=== PATIENT | female | born 1985 | race Caucasian/White ===

== ENCOUNTER 2017-02-18 13:53 | Emergency (ER) | payer MEDICAID, OTHER ==
[~2017-02-18] VITALS: Ht 165.1 cm; Wt 134.0 kg
[~2017-02-18 13:53] MED LIST: AMOX1TAB12 PO; ONDA4TAB10 PO
[2017-02-18] MEDS ORDERED: FAMOTIDINE 20 MG/2 ML IVP ONE (14:30)
[2017-02-18] MEDS ORDERED: SODIUM CHLORIDE 0.9% 1,000ML IVBOLUS ONE (14:30)
[2017-02-18] MEDS ORDERED: SODIUM CHLORIDE FLUSH 10ML SYR IVF ONE (14:30)
[2017-02-18] MEDS ORDERED: ONDANSETRON 2MG/ML, 2ML IVPush ONE (14:30)
[2017-02-18] MEDS ORDERED: ONDANSETRON 2MG/ML, 2ML ONE (14:40)
[2017-02-18] MEDS ORDERED: FAMOTIDINE 20 MG/2 ML ONE (14:40)
[2017-02-18] MEDS ORDERED: morphine SULFATE 10 MG/ML, 1ML ONE ×2 (14:40→15:46)
[2017-02-18] MEDS: MORPHINE SULFATE 4 MG/ML, 1ML IVPush PRN ×2 (14:46→15:50)
[2017-02-18 14:50] LABS: HEMATOCRIT 42.2 % (34.6-47.8); HEMOGLOBIN 14.1 g/dL (11.7-16.4); WHITE BLOOD COUNT 9.2 x10^3/uL (3.4-10)
[2017-02-18 15:25] LABS: BLOOD UREA NITROGEN 11 mg/dL (7-18)
[2017-02-18 15:29] LABS: ASPARTATE AMINO TRANSFERASE 36 U/L (15-37)
[2017-02-18 17:05] VITALS: BP 110/71
== END 2017-02-18 17:07 | disposition home or self-care (01) ==
LOC: ED 15:37
DX: M51.26 Other intervertebral disc displacement, lumbar region (principal); R11.2 Nausea with vomiting, unspecified; R05 Cough; E11.9 Type 2 diabetes mellitus without complications
CPT/HCPCS: 36415; 71020; 74176; 80053; 83690; 84703; 85025; 96361; 96374; 96375; 96376; 99285; J2405; J7030; S0028

== ENCOUNTER 2017-03-04 19:02 | Emergency (ER) | payer SELFPAY ==
[~2017-03-04] VITALS: Ht 167.6 cm; Wt 135.0 kg
[2017-03-04] MEDS ORDERED: DIAZEPAM 5 MG TABLET ONE (19:55)
[2017-03-04] MEDS ORDERED: KETOROLAC 30 MG/1 ML ONE (19:55)
[2017-03-04] MEDS ORDERED: KETOROLAC 30 MG/1 ML IM ONE (20:00)
[2017-03-04] MEDS ORDERED: DIAZEPAM 5 MG TABLET PO ONE (20:00)
[2017-03-04 21:00] VITALS: BP 129/82
== END 2017-03-04 21:02 | disposition home or self-care (01) ==
LOC: ED 19:40
DX: S16.1XXA Strain of muscle, fascia and tendon at neck level, initial encounter (principal); H65.01 Acute serous otitis media, right ear; E11.9 Type 2 diabetes mellitus without complications; Z90.49 Acquired absence of other specified parts of digestive tract; X58.XXXA Exposure to other specified factors, initial encounter; Y93.89 Activity, other specified; Y92.89 Other specified places as the place of occurrence of the external cause; Y99.8 Other external cause status
CPT/HCPCS: 81001; 87086; 96372; 99284; J1885

== ENCOUNTER 2018-04-23 17:33 | Emergency (ER) | payer SELFPAY ==
[~2018-04-23] VITALS: Ht 167.6 cm; Wt 122.0 kg
[2018-04-23] MEDS ORDERED: DEXAMETHASONE 4 MG/ML, 1ML ONE (17:59)
[2018-04-23] MEDS ORDERED: methylPREDNISolone SOD SUCC 125 MG/2 ML IVPush ONE (18:00)
[2018-04-23] MEDS ORDERED: SODIUM CHLORIDE FLUSH 10ML SYR IVF ONE (18:00)
[2018-04-23 18:04] LABS: BASOPHILS # (AUTO) 0.02 x10^3/uL (0-0.1); BASOPHILS % (AUTO) 0 % (0-1); EOSINOPHILS # (AUTO) 0.04 x10^3/uL (0-0.4); EOSINOPHILS % (AUTO) 0 % (1-7); LYMPHOCYTES # (AUTO) 2.35 x10^3/uL (1-3.4); LYMPHOCYTES % (AUTO) 18 % (22-44); MD NO; MEAN CORPUSCULAR HEMOGLOBIN 28.4 pg (27.0-34.8); MEAN CORPUSCULAR HGB CONC 33.9 g/dL (32.4-35.8); MEAN CORPUSCULAR VOLUME 83.9 fL (80-100); MEAN PLATELET VOLUME 10.4 fL (7.4-10.4); MONOCYTES % (AUTO) 6 % (2-9); NEUTROPHILS # (AUTO) 10.06 x10^3/uL (1.8-6.8); NEUTROPHILS % (AUTO) 76 % (42-75); PLATELET COUNT 276 x10^3/uL (130-400); RED BLOOD COUNT 5.28 x10^6/uL (3.82-5.3)
[2018-04-23] MEDS: DEXAMETHASONE 4 MG/ML, 1ML IVPush ONE (18:04)
[2018-04-23 18:15] LABS: RAPID INFLUENZA A Negative (Negative); RAPID INFLUENZA B Negative (Negative)
[2018-04-23 18:18] LABS: ALBUMIN 3.8 g/dL (3.4-5.0); ANION GAP 10 mmol/L (5-15); CALCIUM 9.2 mg/dL (8.5-10.1); CHLORIDE 105 mmol/L (98-107)
[2018-04-23] MEDS ORDERED: OMNIPAQUE 350 MG/ML, 100ML BOTTLE ONE (18:40)
--- NOTE | 2018-04-23 19:03 | NUR ---
PTS CHART UP FOR RECHECK
[2018-04-23 19:57] VITALS: BP 136/69
== END 2018-04-23 19:59 | disposition home or self-care (01) ==
LOC: ED 19:37
DX: M79.18 Myalgia, other site (principal); J02.8 Acute pharyngitis due to other specified organisms; J03.80 Acute tonsillitis due to other specified organisms; B97.89 Other viral agents as the cause of diseases classified elsewhere; R11.2 Nausea with vomiting, unspecified; E11.9 Type 2 diabetes mellitus without complications
CPT/HCPCS: 36415; 70491; 80048; 82040; 83605; 84145; 85025; 86308; 87040; 87081; 87400; 87880; 96374; 99284; J1100; Q9967

== ENCOUNTER 2018-08-22 07:41 | Emergency (ER) | payer SELFPAY ==
[~2018-08-22] VITALS: Ht 167.6 cm; Wt 113.4 kg
[2018-08-22] MEDS ORDERED: ACETAMINOPHEN 325 MG TABLET PO ONE (08:00)
[2018-08-22] MEDS ORDERED: ACETAMINOPHEN 325 MG TABLET ONE (08:01)
--- NOTE | 2018-08-22 08:06 | NUR ---
PT TO ROOM 17 W/ C/O LBP RADIATING TO R SHOULDER/R CHEST. PT STATES SHE FELL WHILE ATTEMPTING TO GET OOB IN THE AM 3 DAYS AGO. DENIES ANY HX. DENIES FEELING LIGHTHEADED/DIZZY PRIOR TO FALL. DENIES LOC/HEAD INJURY. NOT ON BLOOD THINNERS. PT RESTING ON [employer]. NAIDA.
--- NOTE | 2018-08-22 08:54 | NUR ---
PT RESTING ON [employer]. NAIDA. VSS. WARM BLANKET PROVIDED.
--- NOTE | 2018-08-22 09:08 | NUR ---
PT CHART REVIEWED AND PLACED FOR RECHECK.
[2018-08-22] MEDS ORDERED: KETOROLAC 30 MG/1 ML IM ONE (09:30)
[2018-08-22] MEDS ORDERED: KETOROLAC 30 MG/1 ML ONE (09:39)
[2018-08-22 09:43] VITALS: BP 98/66
== END 2018-08-22 10:04 | disposition home or self-care (01) ==
LOC: ED 09:39
DX: S29.012A Strain of muscle and tendon of back wall of thorax, initial encounter (principal); W13.3XXA Fall through floor, initial encounter; Y93.89 Activity, other specified; Y92.89 Other specified places as the place of occurrence of the external cause; Y99.8 Other external cause status
CPT/HCPCS: 36415; 72072; 84703; 96372; 99284; J1885

== ENCOUNTER 2018-09-19 07:32 | Emergency (ER) | payer SELFPAY ==
[~2018-09-19] VITALS: Ht 167.6 cm; Wt 109.5 kg
--- NOTE | 2018-09-19 07:52 | NUR ---
PT ASSESSED. REPORTS N/V X 2 DAYS WITH ASSOCIATED HEMATURIA AND BODY ACHES. UNSURE IF HAVING FEVERS. PT REPORTS BILATERAL FLANK PAIN THAT RAIDAITES TO BILATERAL LOWER QUADRANTS. WILL CONT TO MONITOR, CALL LIGHT WITHIN REACH.
--- NOTE | 2018-09-19 07:55 | NUR ---
PT NOW INFORMING RN SHE WAS LIGHTHEADED THIS AM AT WORK AND "HAD A FALL BUT CAUGHT MYSELF". PT DENIES INJURY OR HITTING HEAD.
[2018-09-19] MEDS ORDERED: SODIUM CHLORIDE 0.9% 1,000 ML IV ONE (08:04)
[2018-09-19] MEDS ORDERED: ONDANSETRON 2MG/ML, 2ML ONE (08:20)
[2018-09-19] MEDS ORDERED: HYDROmorphone 2 MG/ML, 1ML ONE ×2 (08:21→10:17)
[2018-09-19 08:27] LABS: BASOPHILS # (AUTO) 0.04 x10^3/uL (0-0.1); BASOPHILS % (AUTO) 0 % (0-1); EOSINOPHILS % (AUTO) 0 % (1-7); LYMPHOCYTES # (AUTO) 1.29 x10^3/uL (1-3.4); LYMPHOCYTES % (AUTO) 11 % (22-44); MD NO; MEAN CORPUSCULAR HEMOGLOBIN 27.5 pg (27.0-34.8); MEAN CORPUSCULAR HGB CONC 31.7 g/dL (32.4-35.8); MEAN CORPUSCULAR VOLUME 86.8 fL (80-100); MEAN PLATELET VOLUME 11.2 fL (7.4-10.4); MONOCYTES # (AUTO) 0.98 x10^3/uL (0.2-0.8); MONOCYTES % (AUTO) 8 % (2-9); NEUTROPHILS # (AUTO) 9.97 x10^3/uL (1.8-6.8); NEUTROPHILS % (AUTO) 81 % (42-75); PLATELET COUNT 174 x10^3/uL (130-400); RED BLOOD COUNT 4.73 x10^6/uL (3.82-5.3); RED CELL DISTRIBUTION WIDTH 14.9 % (9.6-15.2)
[2018-09-19] MEDS ORDERED: SODIUM CHLORIDE FLUSH 10ML SYR IVF ONE (08:30)
[2018-09-19] MEDS ORDERED: ONDANSETRON 2MG/ML, 2ML IVPush ONE (08:30)
[2018-09-19] MEDS ORDERED: SODIUM CHLORIDE 0.9% 1,000ML IVBOLUS ONE (08:30)
[2018-09-19] MEDS: HYDROmorphone 2 MG/ML, 1ML IVPush PRN ×2 (08:35→10:19)
[2018-09-19 08:39] LABS: MICROSCOPIC AUTO
[2018-09-19 08:39] LABS: ALANINE AMINOTRANSFERASE 55 U/L (12-78); ALBUMIN 3.3 g/dL (3.4-5.0); ANION GAP 7 mmol/L (5-15); CALCIUM 8.6 mg/dL (8.5-10.1); CHLORIDE 110 mmol/L (98-107); CREATININE 0.99 mg/dL (0.55-1.02)
[2018-09-19 08:42] LABS: CULTURE INDICATED? YES
[2018-09-19 08:43] LABS: ALKALINE PHOSPHATASE 71 U/L (45-117); BILIRUBIN,TOTAL 0.6 mg/dL (0.2-1.0)
--- NOTE | 2018-09-19 10:22 | NUR ---
PT MEDICATED FOR 10/10 PAIN ORDERED. IV NS INFUSING ORDERED. PT WANTING "SOMETHING TO DRINK" DISCUSSED WITH DR HECTOR. PT TO BE PROVIDED WITH PO FLUIDS.
--- NOTE | 2018-09-19 10:29 | NUR ---
CONFIRMED WITH MD NO BC NEEDED
[2018-09-19] MEDS ORDERED: CEFTRIAXONE PMX 1GM/50ML 50 ML IVPB ONE (10:30)
[2018-09-19] MEDS ORDERED: CEFTRIAXONE PMX 1GM/50ML 50 ML ONE (10:32)
--- NOTE | 2018-09-19 10:36 | NUR ---
ROUNDED ON PT. PAIN SLIGHTLY IMPROVED WITH DIALUDID. NAD AT THIS TIME, WILL CONT TO MONITOR IV ABX INFUSING
[2018-09-19 11:32] VITALS: BP 104/65
== END 2018-09-19 11:36 | disposition home or self-care (01) ==
LOC: ED 08:10
DX: N10 Acute pyelonephritis (principal)
CPT/HCPCS: 36415; 74176; 80053; 81001; 83690; 84703; 85025; 87077; 87086; 87186; 96361; 96365; 96375; 96376; 99284; J0696; J1170; J2405; J7030

== ENCOUNTER 2019-04-10 11:13 | Emergency (ER) | payer SELFPAY ==
[~2019-04-10] VITALS: Ht 167.6 cm; Wt 124.0 kg
--- NOTE | 2019-04-10 11:51 | NUR ---
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
[2019-04-10] MEDS ORDERED: MAALOX/HYOSCYAMINE/LIDOCAINE 45 ML BTL PO ONE (12:30)
--- NOTE | 2019-04-10 12:37 | NUR ---
PT C/O MULTIPLE COMPLAINTS INCLUDING CP SINCE LAST WEEK AFTER FALLING, SYNCOPE FOR COUPLE SECONDS ON WAY TO WORK, N/V FOR 3 DAYS, DIARRHEA YESTERDAY. PT ON SUNIOTR AND IV STARTED. WAITING FOR LABS AND CTA.
[2019-04-10 12:43] LABS: BASOPHILS # (AUTO) 0.02 x10^3/uL (0-0.1); BASOPHILS % (AUTO) 0 % (0-1); EOSINOPHILS # (AUTO) 0.11 x10^3/uL (0-0.4); EOSINOPHILS % (AUTO) 1 % (1-7); LYMPHOCYTES # (AUTO) 2.37 x10^3/uL (1-3.4); LYMPHOCYTES % (AUTO) 26 % (22-44); MD NO; MEAN CORPUSCULAR HEMOGLOBIN 26.7 pg (27.0-34.8); MEAN CORPUSCULAR HGB CONC 32.8 g/dL (32.4-35.8); MEAN CORPUSCULAR VOLUME 81.4 fL (80-100); MEAN PLATELET VOLUME 10.6 fL (7.4-10.4); MONOCYTES # (AUTO) 0.51 x10^3/uL (0.2-0.8); MONOCYTES % (AUTO) 6 % (2-9); NEUTROPHILS # (AUTO) 6.16 x10^3/uL (1.8-6.8); NEUTROPHILS % (AUTO) 67 % (42-75); PLATELET COUNT 268 x10^3/uL (130-400); RED BLOOD COUNT 4.96 x10^6/uL (3.82-5.3); RED CELL DISTRIBUTION WIDTH 16.2 % (9.6-15.2)
[2019-04-10 12:48] LABS: ALBUMIN 3.2 g/dL (3.4-5.0); ANION GAP 4 mmol/L (5-15); CALCIUM 8.5 mg/dL (8.5-10.1); CHLORIDE 108 mmol/L (98-107)
[2019-04-10 12:54] LABS: ALANINE AMINOTRANSFERASE 45 U/L (12-78); ALKALINE PHOSPHATASE 73 U/L (45-117); BILIRUBIN,TOTAL 0.2 mg/dL (0.2-1.0); CREATININE 1.02 mg/dL (0.55-1.02); TOTAL PROTEIN 7.4 g/dL (6.4-8.2); TROPONIN I < 0.015 ng/mL (0.000-0.045)
[2019-04-10 13:47] VITALS: BP 113/46
== END 2019-04-10 14:00 | disposition home or self-care (01) ==
LOC: ED 13:30
DX: S20.212A Contusion of left front wall of thorax, initial encounter (principal); W18.30XA Fall on same level, unspecified, initial encounter; Y93.89 Activity, other specified; Y92.69 Other specified industrial and construction area as the place of occurrence of the external cause; Y99.8 Other external cause status
CPT/HCPCS: 36415; 71045; 80053; 83690; 84484; 84703; 85025; 85379; 93005; 99284

== ENCOUNTER 2019-07-09 23:40 | Emergency (ER) | payer SELFPAY ==
[~2019-07-09] VITALS: Ht 167.6 cm; Wt 132.0 kg
[2019-07-09 23:42] VITALS: BP 154/90
[2019-07-10] MEDS ORDERED: KETOROLAC 30 MG/1 ML IM ONE
[2019-07-10] MEDS ORDERED: KETOROLAC 30 MG/1 ML ONE (00:02)
== END 2019-07-10 01:33 | disposition home or self-care (01) ==
LOC: ED 07-10 00:40
DX: M79.672 Pain in left foot (principal)
CPT/HCPCS: 73630; 96372; 99283; J1885

== ENCOUNTER 2019-07-23 17:33 | Emergency (ER) | payer OTHER ==
[~2019-07-23] VITALS: Ht 167.6 cm; Wt 127.3 kg
[2019-07-23] MEDS ORDERED: SODIUM CHLORIDE FLUSH 10ML SYR IVF ONE (18:00)
[2019-07-23] MEDS ORDERED: ONDANSETRON 2MG/ML, 2ML IVPush ONE (18:00)
[2019-07-23] MEDS ORDERED: HYDROmorphone 1 MG/ML, 1ML INJ ONE ×2 (18:11→19:34)
[2019-07-23] MEDS ORDERED: ONDANSETRON 2MG/ML, 2ML ONE (18:11)
[2019-07-23] MEDS: HYDROmorphone 2 MG/ML, 1ML IVPush PRN ×2 (18:21→19:39)
[2019-07-23 18:22] LABS: BASOPHILS # (AUTO) 0.06 x10^3/uL (0-0.1); BASOPHILS % (AUTO) 1 % (0-1); EOSINOPHILS # (AUTO) 0.06 x10^3/uL (0-0.4); EOSINOPHILS % (AUTO) 1 % (1-7); LYMPHOCYTES # (AUTO) 3.08 x10^3/uL (1-3.4); LYMPHOCYTES % (AUTO) 27 % (22-44); MD NO; MEAN CORPUSCULAR HEMOGLOBIN 27.5 pg (27.0-34.8); MEAN CORPUSCULAR HGB CONC 33.2 g/dL (32.4-35.8); MEAN CORPUSCULAR VOLUME 82.8 fL (80-100); MEAN PLATELET VOLUME 10.1 fL (7.4-10.4); MONOCYTES # (AUTO) 0.54 x10^3/uL (0.2-0.8); MONOCYTES % (AUTO) 5 % (2-9); NEUTROPHILS # (AUTO) 7.56 x10^3/uL (1.8-6.8); NEUTROPHILS % (AUTO) 67 % (42-75); PLATELET COUNT 294 x10^3/uL (130-400); RED BLOOD COUNT 5.13 x10^6/uL (3.82-5.3); RED CELL DISTRIBUTION WIDTH 14.3 % (9.6-15.2)
--- NOTE | 2019-07-23 18:22 | NUR ---
PT WITH C/O LLQ/LUQ PAIN THAT RADIATES TO HER BACK, PT RATES PAIN 6/10 AT THIS TIME, PT WITH N/V DENIES DIARRHEA. PT DENIES URINARY SYMPTOMS. PIV INITIATED, PT MEDICATED PER JUN UA COLLECTED AND SENT TO LAB
[2019-07-23 18:33] LABS: ALANINE AMINOTRANSFERASE 44 U/L (12-78); ALBUMIN 3.7 g/dL (3.4-5.0); ANION GAP 6 mmol/L (5-15); CHLORIDE 107 mmol/L (98-107); CREATININE 1.25 mg/dL (0.55-1.02)
[2019-07-23 18:37] LABS: ALKALINE PHOSPHATASE 78 U/L (45-117); BILIRUBIN,TOTAL 0.1 mg/dL (0.2-1.0); TOTAL PROTEIN 8.3 g/dL (6.4-8.2)
[2019-07-23 19:10] LABS: MICROSCOPIC AUTO
[2019-07-23 19:11] LABS: CULTURE INDICATED? YES
[2019-07-23] MEDS ORDERED: KETOROLAC 30 MG/1 ML IVPush ONE (20:00)
[2019-07-23] MEDS ORDERED: KETOROLAC 30 MG/1 ML ONE (20:34)
[2019-07-23 21:04] LABS: CULTURE INDICATED? YES; MICROSCOPIC INDICATED
--- NOTE | 2019-07-23 21:25 | NUR ---
Pt continues to report no change in pain after Dilaudid and Toradol.
[2019-07-23 21:41] VITALS: BP 109/57
== END 2019-07-23 21:43 | disposition home or self-care (01) ==
LOC: ED 19:27
DX: N13.2 Hydronephrosis with renal and ureteral calculous obstruction (principal); R10.84 Generalized abdominal pain; R11.2 Nausea with vomiting, unspecified; R19.7 Diarrhea, unspecified; E11.9 Type 2 diabetes mellitus without complications; Z90.49 Acquired absence of other specified parts of digestive tract
CPT/HCPCS: 36415; 74022; 74176; 80053; 81001; 83690; 84703; 85025; 87086; 93005; 96374; 96375; 96376; 99285; J1170; J1885; J2405

== ENCOUNTER 2020-01-11 10:52 | Emergency (ER) | payer SELFPAY ==
[~2020-01-11] VITALS: Ht 167.6 cm; Wt 100.0 kg
[2020-01-11 10:52] VITALS: BP 114/63
--- NOTE | 2020-01-11 11:08 | NUR ---
PT IN ROOM [facility] ON [facility]. NAIDA, CALL LIGHT IN REACH.
[2020-01-11] MEDS ORDERED: OXYcodone/APAP 5/325MG TABLET ONE (11:22)
[2020-01-11] MEDS ORDERED: IBUPROFEN 600 MG TABLET ONE (11:23)
--- NOTE | 2020-01-11 11:27 | NUR ---
TASK RN: MEDICATED NOTED FOR RIGHT KNEE PAIN AND PT TO XRAY VIA GURNEY
[2020-01-11] MEDS ORDERED: IBUPROFEN 600 MG TABLET PO ONE (11:30)
[2020-01-11] MEDS ORDERED: OXYcodone/APAP 5/325MG TABLET PO ONE (11:30)
== END 2020-01-11 12:53 | disposition home or self-care (01) ==
LOC: ED 12:19
DX: M25.562 Pain in left knee (principal); M25.462 Effusion, left knee; E11.9 Type 2 diabetes mellitus without complications; Z90.49 Acquired absence of other specified parts of digestive tract
CPT/HCPCS: 29505; 99283

== ENCOUNTER 2020-02-10 09:08 | Emergency (ER) | payer OTHER ==
[~2020-02-10] VITALS: Ht 167.6 cm; Wt 127.4 kg
--- NOTE | 2020-02-10 09:45 | NUR ---
PT AMBULATED TO THE BR W/ A STEADY GAIT. PROVIDED URINE CUP FOR SAMPLE.
--- NOTE | 2020-02-10 09:57 | NUR ---
THIS IS A 34 YO F W/ C/O SYNCOPAL EPISODE YESTERDAY AT WORK RESULTING IN HITTING HEAD AND REPORTED LOC. PT DENIES ANY SYMPTOMS NOW. PT STATES SHE IS HERE TO GET CLEARED FOR WORK. PT RESTING ON [employer] W/ CALL LIGHT IN REACH AND SIDE RAILS UPX2. RESP EVEN AND UNLABORED, NAIDA.
[2020-02-10 10:03] LABS: BASOPHILS % (AUTO) 1 % (0-1); EOSINOPHILS % (AUTO) 1 % (1-7); LYMPHOCYTES % (AUTO) 27 % (22-44); MEAN CORPUSCULAR HEMOGLOBIN 26.4 pg (27.0-34.8); MEAN CORPUSCULAR HGB CONC 32.4 g/dL (32.4-35.8); MEAN PLATELET VOLUME 9.5 fL (7.4-10.4); MONOCYTES % (AUTO) 6 % (2-9); NEUTROPHILS % (AUTO) 66 % (42-75); PLATELET COUNT 301 x10^3/uL (130-400); RED BLOOD COUNT 4.96 x10^6/uL (3.82-5.3); RED CELL DISTRIBUTION WIDTH 14.4 % (9.6-15.2)
[2020-02-10 10:12] LABS: ALANINE AMINOTRANSFERASE 45 U/L (12-78); ALBUMIN 3.5 g/dL (3.4-5.0); ANION GAP 8 mmol/L (5-15); CALCIUM 9.2 mg/dL (8.5-10.1); CHLORIDE 110 mmol/L (98-107); CREATININE 0.97 mg/dL (0.55-1.02)
[2020-02-10 10:16] LABS: ALKALINE PHOSPHATASE 75 U/L (45-117); BILIRUBIN,TOTAL 0.3 mg/dL (0.2-1.0)
[2020-02-10 10:18] LABS: MD NO
[2020-02-10 10:24] LABS: MICROSCOPIC INDICATED
--- NOTE | 2020-02-10 10:50 | NUR ---
ALL TESTS RESULTED, PT IS UP FOR RECHECK AT THIS TIME.
[2020-02-10 10:54] VITALS: BP 141/87
--- NOTE | 2020-02-10 11:31 | NUR ---
Patient given discharge instructions and they have confirmed that they understand the instructions. Patient ambulatory with steady gait.
== END 2020-02-10 11:32 | disposition home or self-care (01) ==
LOC: ED 09:54
DX: S06.9X1A Unspecified intracranial injury with loss of consciousness of 30 minutes or less, initial encounter (principal); R42 Dizziness and giddiness; R11.10 Vomiting, unspecified; E11.9 Type 2 diabetes mellitus without complications; Z90.49 Acquired absence of other specified parts of digestive tract; X58.XXXA Exposure to other specified factors, initial encounter; Y93.89 Activity, other specified; Y92.89 Other specified places as the place of occurrence of the external cause; Y99.8 Other external cause status
CPT/HCPCS: 36415; 80053; 81001; 82962; 84703; 85025; 87086; 93005; 99284

== ENCOUNTER 2020-02-20 11:37 | Emergency (ER) | payer SELFPAY ==
[~2020-02-20] VITALS: Ht 167.6 cm; Wt 126.2 kg
[2020-02-20 12:08] LABS: BASOPHILS % (AUTO) 1 % (0-1); EOSINOPHILS % (AUTO) 2 % (1-7); LYMPHOCYTES % (AUTO) 27 % (22-44); MEAN CORPUSCULAR HEMOGLOBIN 26.6 pg (27.0-34.8); MEAN CORPUSCULAR HGB CONC 32.4 g/dL (32.4-35.8); MEAN PLATELET VOLUME 9.5 fL (7.4-10.4); MONOCYTES % (AUTO) 5 % (2-9); NEUTROPHILS % (AUTO) 66 % (42-75); PLATELET COUNT 302 x10^3/uL (130-400); RED BLOOD COUNT 4.92 x10^6/uL (3.82-5.3); RED CELL DISTRIBUTION WIDTH 14.8 % (9.6-15.2)
[2020-02-20 12:10] LABS: MD NO
[2020-02-20 12:19] LABS: ALBUMIN 3.5 g/dL (3.4-5.0); ANION GAP 8 mmol/L (5-15); CHLORIDE 111 mmol/L (98-107)
[2020-02-20 12:21] LABS: MICROSCOPIC AUTO
[2020-02-20 12:24] LABS: ALANINE AMINOTRANSFERASE 47 U/L (12-78); ALKALINE PHOSPHATASE 78 U/L (45-117); BILIRUBIN,TOTAL 0.2 mg/dL (0.2-1.0); CREATININE 0.97 mg/dL (0.55-1.02); TOTAL PROTEIN 7.7 g/dL (6.4-8.2)
--- NOTE | 2020-02-20 12:56 | NUR ---
ED MANAGER: PT AMBULATORY TO ROOM FROM LOBBY
--- NOTE | 2020-02-20 13:05 | NUR ---
ASSUMED CARE OF PATIENT. PATIENT REPORTS SHE HAD RIGHT FLANK PAIN WITH LOWER ABD PAIN X2 DAYS. PT ALSO REPORTS SOME VOMITING. VS STABLE. NO ACUTE DISTRESS NOTED. YOLANDA LIND AT BEDSIDE. CALL LIGHT IN PLACE WILL CONTINUE TO MONITOR.
[2020-02-20] MEDS ORDERED: MORPHINE SULFATE 4 MG/ML, 1ML ONE (13:08)
[2020-02-20] MEDS ORDERED: ONDANSETRON 2MG/ML, 2ML ONE (13:08)
[2020-02-20] MEDS ORDERED: MORPHINE SULFATE 4 MG/ML, 1ML IVPush PRN (13:30)
[2020-02-20] MEDS ORDERED: SODIUM CHLORIDE 0.9% 1,000ML IVBOLUS ONE (13:30)
[2020-02-20] MEDS ORDERED: SODIUM CHLORIDE FLUSH 10ML SYR IVF ONE (13:30)
[2020-02-20] MEDS ORDERED: ONDANSETRON 2MG/ML, 2ML IVPush ONE (13:30)
--- NOTE | 2020-02-20 13:51 | NUR ---
PT WATCHING TV. NO ACUTE DISTRESS NOTED. CALL LIGHT IN PLACE. WILL CONTINUE TO MONITOR.
[2020-02-20 14:12] VITALS: BP 109/62
== END 2020-02-20 14:15 | disposition home or self-care (01) ==
LOC: ED 12:09
DX: N30.00 Acute cystitis without hematuria (principal); R11.2 Nausea with vomiting, unspecified; R10.31 Right lower quadrant pain; E11.9 Type 2 diabetes mellitus without complications; E66.9 Obesity, unspecified; Z90.49 Acquired absence of other specified parts of digestive tract
CPT/HCPCS: 36415; 74176; 80053; 81001; 83690; 84703; 85025; 87086; 96361; 96374; 96375; 99284; J2270; J2405; J7030

== ENCOUNTER 2020-05-05 15:41 | Emergency (ER) | payer SELFPAY ==
[~2020-05-05] VITALS: Ht 167.6 cm; Wt 125.0 kg
[2020-05-05 15:52] VITALS: BP 124/78
[2020-05-05] MEDS ORDERED: KETOROLAC 30 MG/1 ML IM ONE (19:00)
[2020-05-05] MEDS ORDERED: KETOROLAC 60 MG/2 ML ONE (19:00)
--- NOTE | 2020-05-05 19:08 | NUR ---
MEDICATED PER EMAR FOR PAIN, PROVIDED WITH CHERIE WRAP UPDTATED ON ESTIMATED POC
--- NOTE | 2020-05-05 19:40 | NUR ---
pain improved to 3/10 provided with knee immobilizer and crutches discharged home in care of boyfriend
== END 2020-05-05 19:52 | disposition home or self-care (01) ==
LOC: ED 19:13
DX: S80.02XA Contusion of left knee, initial encounter (principal); W01.0XXA Fall on same level from slipping, tripping and stumbling without subsequent striking against object, initial encounter; Y93.89 Activity, other specified; Y92.89 Other specified places as the place of occurrence of the external cause; Y99.8 Other external cause status
CPT/HCPCS: 29505; 71101; 73564; 96372; 99284; J1885

== ENCOUNTER 2020-05-29 05:13 | Emergency (ER) | payer SELFPAY ==
[~2020-05-29] VITALS: Ht 167.6 cm; Wt 132.0 kg
[2020-05-29] MEDS ORDERED: KETOROLAC 30 MG/1 ML IM ONE (05:30)
[2020-05-29] MEDS ORDERED: CEPHALEXIN 500 MG CAPSULE PO ONE (05:30)
[2020-05-29] MEDS ORDERED: KETOROLAC 30 MG/1 ML ONE (05:36)
[2020-05-29] MEDS ORDERED: CEPHALEXIN 500 MG CAPSULE ONE (05:36)
--- NOTE | 2020-05-29 05:45 | NUR ---
ASSESSMENT MADE. SEEN BY PA . ORDERS MADE
--- NOTE | 2020-05-29 06:14 | NUR ---
X RAY DONE. MEDICATED. PATIENT C/O CHEST PAIN. EKG DONE. NOTICED PATIENT BREATHING FAST/ HYPERVENTILATING.
--- NOTE | 2020-05-29 06:57 | NUR ---
PT REPORT FROM RIANNA PIERRE
[2020-05-29 08:05] VITALS: BP 113/61
--- NOTE | 2020-05-29 08:35 | NUR ---
PT REC'VD DISCHARGE INSTRUCTIONS AND EDUCATION. PT HAD NO FURTHER QUESTIONS. PT AMBULATED TO DC AREA, STEADY GAIT.
== END 2020-05-29 08:38 | disposition home or self-care (01) ==
LOC: ED 06:22
DX: L03.116 Cellulitis of left lower limb (principal); R26.2 Difficulty in walking, not elsewhere classified; E11.9 Type 2 diabetes mellitus without complications; E66.01 Morbid (severe) obesity due to excess calories; Z68.37 Body mass index [BMI] 37.0-37.9, adult
CPT/HCPCS: 73630; 82962; 93005; 96372; 99283; J1885

== ENCOUNTER 2020-08-09 17:40 | Emergency (ER) | payer SELFPAY ==
[~2020-08-09] VITALS: Ht 167.6 cm; Wt 129.7 kg
--- NOTE | 2020-08-09 17:59 | NUR ---
Dropped large glass bottle full of liquid on L foot. +pedal pulse, no swelling noted. Serve pain in 1st and 2nd toes. PT IN TEAR WHEN THIS RN WALKS INTO ROOM. PT STATES SHE CANNOT BARE WEIGHT ON FOOT AND IT IS 10/10 PAIN. PT ATTACHED TO MONITORS. VSS. AWAITING ORDERS.
[2020-08-09 18:01] VITALS: BP 135/78
[2020-08-09] MEDS ORDERED: KETOROLAC 30 MG/1 ML ONE (18:27)
[2020-08-09] MEDS ORDERED: KETOROLAC 30 MG/1 ML IM ONE (18:30)
--- NOTE | 2020-08-09 19:01 | NUR ---
Patient/Caregiver given discharge instructions and they have confirmed that they understand the instructions. Patient ambulatory with steady gait.
== END 2020-08-09 19:02 | disposition home or self-care (01) ==
LOC: ED 18:50
DX: S90.32XA Contusion of left foot, initial encounter (principal); R00.0 Tachycardia, unspecified; E11.9 Type 2 diabetes mellitus without complications; Z90.49 Acquired absence of other specified parts of digestive tract; W20.8XXA Other cause of strike by thrown, projected or falling object, initial encounter; Y93.89 Activity, other specified; Y92.009 Unspecified place in unspecified non-institutional (private) residence as the place of occurrence of the external cause; Y99.8 Other external cause status
CPT/HCPCS: 29540; 73630; 96372; 99283; J1885

== ENCOUNTER 2020-10-04 16:07 | Emergency (ER) | payer SELFPAY ==
[~2020-10-04] VITALS: Ht 167.6 cm; Wt 128.0 kg
--- NOTE | 2020-10-04 18:49 | NUR ---
PATIENT VITALS RECHECKED @ [id number]
--- NOTE | 2020-10-04 19:47 | NUR ---
To triage for evaluation by PAC.
[2020-10-04 20:19] LABS: BASOPHILS % (AUTO) 1 % (0-1); EOSINOPHILS % (AUTO) 2 % (1-7); LYMPHOCYTES % (AUTO) 31 % (22-44); MEAN CORPUSCULAR HEMOGLOBIN 26.9 pg (27.0-34.8); MEAN PLATELET VOLUME 9.9 fL (7.4-10.4); MONOCYTES % (AUTO) 7 % (2-9); NEUTROPHILS % (AUTO) 59 % (42-75); PLATELET COUNT 283 x10^3/uL (130-400); RED BLOOD COUNT 4.78 x10^6/uL (3.82-5.3); RED CELL DISTRIBUTION WIDTH 14.9 % (9.6-15.2)
[2020-10-04 20:29] LABS: MICROSCOPIC INDICATED
[2020-10-04 20:30] LABS: ALBUMIN 3.6 g/dL (3.4-5.0); ANION GAP 8 mmol/L (5-15); CALCIUM 8.7 mg/dL (8.5-10.1); CHLORIDE 109 mmol/L (98-107)
[2020-10-04 20:36] LABS: ALANINE AMINOTRANSFERASE 50 U/L (12-78); ALKALINE PHOSPHATASE 76 U/L (45-117); BILIRUBIN,TOTAL 0.4 mg/dL (0.2-1.0); CREATININE 0.94 mg/dL (0.55-1.02)
[2020-10-04] MEDS ORDERED: KETOROLAC 60 MG/2 ML ONE (20:56)
[2020-10-04] MEDS ORDERED: KETOROLAC 30 MG/1 ML IM ONE (21:00)
[2020-10-04 23:15] VITALS: BP 114/60
== END 2020-10-04 23:57 | disposition home or self-care (01) ==
LOC: ED 20:24
DX: R10.11 Right upper quadrant pain (principal); R11.2 Nausea with vomiting, unspecified; E11.9 Type 2 diabetes mellitus without complications; Z90.49 Acquired absence of other specified parts of digestive tract
CPT/HCPCS: 36415; 74176; 76700; 80053; 81001; 83690; 84703; 85025; 87086; 96372; 99285; J1885